=== PATIENT | male | born 1985 ===

== ENCOUNTER 2020-12-06 04:21 | Inpatient (IN) | payer OTHER ==
[2020-12-06] MEDS ORDERED: Ondansetron 4 MG Tab.DIS PO ONE (05:11)
--- NOTE | 2020-12-06 05:17 | EDM.PDOC ---
ED HPI GENERAL MEDICAL PROBLEM - General Chief Complaint: General Stated Complaint: MEDICAL [facility]IA [facility] Time Seen by Provider: 12/06/20 05:00 Source of Information: Reports: Patient, EMS History Limitations: Reports: No Limitations - History of Present Illness INITIAL COMMENTS - FREE TEXT/NARRATIVE: 35-year-old male received his Covid vaccine yesterday afternoon, last night around 10:00 developed some nausea, chills, and then had emesis 6 times through the night. No diarrhea, no shortness of breath. He has some fairly significant abdominal cramps. He became scared and probably hyperventilated because he developed some numbness at the top of his head and started thinking he may have food poisoning. He called the ambulance and they tried to reassure him but he wanted to be seen. He arrived afebrile, anxious, still complaining of some abdominal cramping and nausea Onset: Sudden Duration: Hour(s): (6 hours) Location: Reports: Abdomen Associated Symptoms: Reports: Fever/Chills, Loss of Appetite, Malaise, Nausea/Vomiting. Denies: Confusion, Chest Pain abd pain Pain Score (Numeric/FACES): 9 - Related Data Allergies Allergy/AdvReac Type Severity Reaction Status Date / Time diphenhydramine Allergy Cannot Verified 12/06/20 05:13 [From Benadryl] Remember ibuprofen Allergy Facial Verified 12/06/20 05:13 Swelling phenytoin [From Dilantin] Allergy Itching Verified 12/06/20 05:13 Home Meds: Home Meds Levothyroxine 125 mcg PO ACBREAKFAST 12/06/20 [History] Past Medical History HEENT History: Reports: Impaired Vision, Other (See Below) Other HEENT History: glasses Neurological History: Reports: Seizure, Other (See Below) Other Neuro History: 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 Psychiatric History: Reports: Anxiety Endocrine/Metabolic History: Reports: Hypothyroidism Oncologic (Cancer) History: Reports: Brain, Other (See Below) 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 Dermatologic History: Reports: Other (See Below) Other Dermatologic History: dry skin - Infectious Disease History Infectious Disease History: Reports: Chicken Pox - Past Surgical History HEENT Surgical History: Reports: Other (See Below) Other HEENT Surgeries/Procedures: 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 Denies: Diarrhea : Reports: No Symptoms Musculoskeletal: Reports: Other (Some generalized muscle aches) Skin: Reports: No Symptoms Neurological: Reports: Other (Tingling at the top of his head) ED EXAM, GENERAL - Physical Exam Exam: See Below Exam Limited By: No Limitations General Appearance: Alert, Anxious Respiratory/Chest: No Respiratory Distress, Lungs Clear Cardiovascular: Regular Rate, Rhythm GI/Abdominal: Normal Bowel Sounds, Guarding (Gaurding across lower abdomen), Tender (Patient does react with diffuse discomfort with palpation of the abdomen) Neurological: Alert, Oriented Psychiatric: Anxious Skin Exam: Warm, Dry Course - Vital Signs Last Recorded V/S: Last Vital Signs Temp 97.8 F 12/07/20 08:00 Pulse 78 12/07/20 08:00 Resp 12 12/07/20 08:00 BP 132/83 12/07/20 08:00 Pulse Ox 98 12/07/20 08:00 - Orders/Labs/Meds Labs: Laboratory Tests 12/06/20 12/06/20 12/06/20 Range/Units 07:12 07:13 07:13 WBC 16.3 H (4.5-11.0) K/uL RBC 5.15 (4.30-5.90) M/uL Hgb 14.9 (12.0-15.0) g/dL Hct 44.0 (40.0-54.0) % MCV 85 (80-98) fL MCH 29 (27-31) pg MCHC 34 (32-36) % Plt Count 326 (150-400) K/uL Neut % (Auto) 89 H (36-66) % Lymph % (Auto) 5 L (24-44) % [place] % (Auto) 5 (2-6) % Eos % (Auto) 0 L (2-4) % Baso % (Auto) 0 (0-1) % Sodium 139 L (140-148) mmol/L Potassium 4.0 (3.6-5.2) mmol/L Chloride 100 (100-108) mmol/L Carbon Dioxide 26 (21-32) mmol/L Anion Gap 17.0 H (5.0-14.0) mmol/L BUN 16 (7-18) mg/dL Creatinine 0.9 (0.8-1.3) mg/dL Est Cr Clr Drug Dosing 110.83 mL/min Estimated GFR (MDRD) > 60 (>60) Glucose 132 H (74-106) mg/dL Calcium 9.2 (8.5-10.1) mg/dL SARS CoV-2 RNA Rapid PB Negative Meds: Medications Discontinued Medications Generic Name Dose Route Start Last Admin Trade Name Freq PRN Reason Stop Dose Admin Acetaminophen 1,000 mg 12/06/20 07:30 12/06/20 07:37 Acetaminophen 500 Mg Tab PO 12/06/20 07:31 1,000 mg ONETIME ONE Administration Acetaminophen 1,000 mg 12/06/20 11:00 12/07/20 05:01 Acetaminophen 500 Mg Tab PO 1,000 mg Q6H GHASSAN Administration Amoxicillin/Clavulanate Potassium 1 tab 12/07/20 09:00 12/07/20 08:12 Amoxicillin/Clavulanate K 875-125 Mg Tab PO 12/07/20 09:01 1 tab ONETIME ONE Administration Bupivacaine HCl/Epinephrine Bitart Confirm 12/06/20 07:45 12/06/20 08:47 Bupivacaine 0.5%/Epinephrine 1:200,000 50 Ml Mdv Administered 12/06/20 07:46 20 ml Dose Administration 50 ml .ROUTE .STK-MED ONE Ropivacaine 42 ml/ 0 ml 12/06/20 08:00 12/06/20 08:50 Dexamethasone 8 mg/ NERVRT 80 syringe Epinephrine HCl 0.4 mg/ Sodium ASDIRECTED GHASSAN Administration Chloride 35.6 ml Cyclobenzaprine HCl 10 mg 12/06/20 10:22 Cyclobenzaprine 10 Mg Tab PO Q8H PRN Muscle Spasm Dexamethasone Confirm 12/06/20 07:52 Dexamethasone 4 Mg/Ml Sdv Administered 12/06/20 07:53 Dose 4 mg .ROUTE .STK-MED ONE Docusate Sodium 100 mg 12/06/20 21:00 12/07/20 08:12 Docusate Sodium 100 Mg Cap PO 100 mg BID GHASSAN Administration Fentanyl Confirm 12/06/20 07:53 Fentanyl 250 Mcg/5 Ml Sdv Administered 12/06/20 07:54 Dose 250 mcg .ROUTE .STK-MED ONE Fentanyl Confirm 12/06/20 08:48 Fentanyl 100 Mcg/2 Ml Sdv Administered 12/06/20 08:49 Dose 100 mcg .ROUTE .STK-MED ONE Glycopyrrolate Confirm 12/06/20 07:52 Glycopyrrolate 0.2 Mg/Ml 5 Ml Mdv Administered 12/06/20 07:53 Dose 1 mg .ROUTE .STK-MED ONE Hydromorphone HCl 0.5 mg 12/06/20 11:00 Hydromorphone 0.5 Mg/0.5 Ml Syringe IVPUSH Q2H PRN MODERATE PAIN Hydromorphone HCl 1 mg 12/06/20 11:00 Hydromorphone 1 Mg/Ml Syringe IV Q2H PRN SEVERE PAIN Hydroxyzine HCl 100 mg 12/06/20 11:00 Hydroxyzine Hcl 100 Mg/2 Ml Sdv IM Q4H PRN breakthrough pain Ampicillin Sodium/Sulbactam 100 mls @ 200 mls/hr 12/06/20 07:30 12/06/20 07:37 Sodium 3 gm/ Sodium Chloride IV 12/06/20 07:59 200 mls/hr ONETIME ONE Administration Lactated Ringer's 500 mls @ 500 mls/hr 12/06/20 07:30 12/06/20 07:37 Ringers, Lactated IV 12/06/20 08:29 500 mls/hr ONETIME ONE Administration Dextrose/Lactated Ringer's 1,000 mls @ 80 mls/hr 12/06/20 08:30 12/06/20 21:11 Dextrose 5%-Lactated Ringers IV 80 mls/hr ASDIRECTED GHASSAN Administration Ampicillin Sodium/Sulbactam 100 mls @ 200 mls/hr 12/06/20 14:00 12/07/20 01:26 Sodium 3 gm/ Sodium Chloride IV 200 mls/hr Q6H GHASSAN Administration Neostigmine Methylsulfate Confirm 12/06/20 07:52 Neostigmine Methylsulfate 1 Mg/Ml 5 Ml Syringe Administered 12/06/20 07:53 Dose 5 mg .ROUTE .STK-MED ONE Ondansetron HCl 4 mg 12/06/20 05:11 12/06/20 05:16 Ondansetron 4 Mg Tab.Dis PO 12/06/20 05:12 4 mg ONETIME ONE Administration Ondansetron HCl Confirm 12/06/20 07:52 Ondansetron 4 Mg/2 Ml Sdv Administered 12/06/20 07:53 Dose 4 mg .ROUTE .STK-MED ONE Ondansetron HCl 4 mg 12/06/20 11:00 Ondansetron 4 Mg/2 Ml Sdv IVPUSH Q4H PRN Nausea/Vomiting Oxycodone HCl 5 mg 12/06/20 10:22 12/07/20 07:59 Oxycodone 5 Mg Tab PO 5 mg Q4H PRN Administration PAIN Pantoprazole Sodium 40 mg 12/06/20 11:00 12/06/20 11:18 Pantoprazole 40 Mg Vial IVPUSH 40 mg Q24H GHASSAN Administration Propofol Confirm 12/06/20 07:52 Propofol 200 Mg/20 Ml Sdv Administered 12/06/20 07:53 Dose 200 mg .ROUTE .STK-MED ONE Rocuronium [place] Confirm 12/06/20 07:52 Rocuronium 50 Mg/5 Ml Vial Administered 12/06/20 07:53 Dose 50 mg .ROUTE .STK-MED ONE Succinylcholine Chloride Confirm 12/06/20 07:52 Succinylcholine 200 Mg/10 Ml Mdv Administered 12/06/20 07:53 Dose 200 mg .ROUTE .STK-MED ONE - Re-Assessments/Exams Free Text/Narrative Re-Assessment/Exam: 12/06/20 05:18 Patient was given 1 sublingual Zofran and monitor. 12/06/20 06:41 1 hour after the Zofran, nausea was better but he still had persistent abdominal pain, it seemed to be more localized in the right lower quadrants so CT of the abdomen pelvis was obtained. Results are pending. 12/06/20 07:17 IMPRESSION: Normal CT of the abdomen without contrast. CT of the pelvis shows findings of acute, nonruptured appendicitis. Above CT findings were found, surgical consultation was obtained and a CBC and BMP were ordered. Dr. Shah of the surgical service has accepted the patient for admission. Departure - Departure Time of Disposition: 08:25 Disposition: Admitted As Inpatient 66 Clinical Impression: Acute appendicitis Qualifiers: Acute appendicitis type: with localized peritonitis Appendicitis gangrene presence: without gangrene Appendicitis perforation presence: without perforation Appendicitis abscess presence: without abscess Qualified Code(s): K35.30 - Acute appendicitis with localized peritonitis, without perforation or gangrene - Discharge Information Sepsis Event Note (ED) - Evaluation Sepsis Screening Result: No Definite Risk
--- NOTE | 2020-12-06 07:00 | CRLCT ---
INDICATION: Right lower quadrant pain. COMPARISON: None available TECHNIQUE: CT examination of the abdomen and pelvis was performed without contrast enhancement using 3 mm thick axial sections from the lung bases through the pubic symphysis. Oral contrast was not administered. Please note that all CT scans at this facility use dose modulation, iterative reconstruction, and/or weight-based dosing when appropriate to reduce radiation dose to as low as reasonably achievable. FINDINGS: In the abdomen, the unenhanced liver, spleen, pancreas, and adrenals are normal in appearance. The unenhanced kidneys are normal in appearance. The gallbladder is normal in appearance. The abdominal aorta is normal in caliber with no sign of dilatation. There is no sign of retroperitoneal mass or adenopathy. The stomach, loops of small bowel, and colon in the abdomen are normal in appearance. In the pelvis, the appendix is prominently dilated at 13 millimeters with mild thickening of its bravo. There is minimal periappendiceal inflammatory reaction. There is no sign of any periappendiceal fluid collection, extraluminal gas, or free fluid in the pelvis. The findings are that of acute, non ruptured appendicitis. The loops of small bowel and colon in the pelvis are normal in appearance. The prostate is normal in appearance. The urinary bladder is normal in appearance. There is no sign of pelvic or inguinal mass or adenopathy. There is no sign of free air or free fluid in the abdomen or pelvis. The lung bases are clear. The osseous structures are normal in appearance for the patient`s age. IMPRESSION: Normal CT of the abdomen without contrast. CT of the pelvis shows findings of acute, nonruptured appendicitis. Please note that all CT scans at this facility use dose modulation, iterative reconstruction, and/or weight-based dosing when appropriate to reduce radiation dose to as low as reasonably achievable. Dictated by Neptali Castro MD @ Dec 06 2020 6:54AM Signed by Dr. Neptali Castro @ Dec 06 2020 6:57AM
[2020-12-06] MEDS ORDERED: Lactated Ringers 500 ML IV ONE (07:30)
[2020-12-06] MEDS ORDERED: Acetaminophen 500 MG Tab PO ONE (07:30)
[2020-12-06] MEDS ORDERED: Ampicillin/Sulbactam Na 3 GM in Sodium Chloride 0.9% 100 ML IV ONE (07:30)
[2020-12-06] MEDS ORDERED: Bupivacaine 0.5%/EPINEPHrine 1:200,000 50 ML MDV ONE (07:45)
[2020-12-06] MEDS ORDERED: Dexamethasone 4 MG/ML SDV ONE (07:52)
[2020-12-06] MEDS ORDERED: Rocuronium 50 MG/5 ML Vial ONE (07:52)
[2020-12-06] MEDS ORDERED: Neostigmine Methylsulfate 1 MG/ML 5 ML Syringe ONE (07:52)
[2020-12-06] MEDS ORDERED: Ondansetron 4 MG/2 ML SDV ONE (07:52)
[2020-12-06] MEDS ORDERED: Succinylcholine 200 MG/10 ML MDV ONE (07:52)
[2020-12-06] MEDS ORDERED: Propofol 200 MG/20 ML SDV ONE (07:52)
[2020-12-06] MEDS ORDERED: Glycopyrrolate 0.2 MG/ML 5 ML MDV ONE (07:52)
[2020-12-06] MEDS ORDERED: fentaNYL 250 MCG/5 ML SDV ONE (07:53)
[2020-12-06] MEDS ORDERED: Dextrose 5%-Lactated Ringers 1,000 ML IV SCH (08:30)
[2020-12-06] MEDS ORDERED: fentaNYL 100 MCG/2 ML SDV ONE (08:48)
[2020-12-06] MEDS ORDERED: Cyclobenzaprine 10 MG Tab PO PRN (10:22)
[2020-12-06] MEDS ORDERED: Ondansetron 4 MG/2 ML SDV IVPUSH PRN (11:00)
[2020-12-06] MEDS ORDERED: HYDROmorphone 0.5 MG/0.5 ML Syringe IVPUSH PRN (11:00)
[2020-12-06] MEDS ORDERED: Pantoprazole 40 MG Vial IVPUSH SCH (11:00)
[2020-12-06] MEDS ORDERED: hydrOXYzine HCL 100 MG/2 ML SDV IM PRN (11:00)
[2020-12-06] MEDS ORDERED: HYDROmorphone 1 MG/ML Syringe IV PRN (11:00)
[2020-12-06] MEDS: Acetaminophen 500 MG Tab PO SCH ×3 (11:18→22:01)
[2020-12-06] MEDS: Ampicillin/Sulbactam Na 3 GM in Sodium Chloride 0.9% 100 ML IV SCH ×2 (13:20→19:48)
[2020-12-06] MEDS: oxyCODONE 5 MG Tab PO PRN (15:12)
[2020-12-06] MEDS: Docusate Sodium 100 MG Cap PO SCH (22:01)
[2020-12-07] MEDS: Ampicillin/Sulbactam Na 3 GM in Sodium Chloride 0.9% 100 ML IV SCH (01:26)
[2020-12-07] MEDS: Acetaminophen 500 MG Tab PO SCH (05:01)
[2020-12-07] MEDS: oxyCODONE 5 MG Tab PO PRN (07:59)
[2020-12-07] MEDS: Docusate Sodium 100 MG Cap PO SCH (08:12)
[2020-12-07] MEDS ORDERED: Amoxicillin/Clavulanate K 875-125 MG Tab PO ONE (09:00)
--- NOTE | 2020-12-08 12:35 | OR ---
DATE OF PROCEDURE: 12/06/2020 SURGEON: Mango Shah MD PREOPERATIVE DIAGNOSIS: Acute appendicitis. POSTOPERATIVE DIAGNOSIS: Perforated appendicitis with necrotizing inflammation involving base of cecum with a pericecal abscess. OPERATIVE PROCEDURE: Diagnostic laparoscopy with: 1. Partial cecectomy (47505). 2. Drainage of pericecal abscess (03669). ANESTHESIA: General. INDICATIONS FOR PROCEDURE: This is a 35-year-old male presenting to the emergency room with abdominal pain. Initially, it was thought this might be related to his first Moderna COVID shot, which he received the day previously, but as of the nurse liaison on 12/08/2020, he continued to have worsening lower abdominal pain, particularly in the right lower quadrant. A CT scan was obtained, which was consistent with acute appendicitis. Plan was to proceed with diagnostic laparoscopy, laparotomy if necessary, and appendectomy with other procedures as indicated based on operative findings. Potential risks including bleeding, infection, leaks from GI tract closures as well as possibility of cardiopulmonary, septic, or hemorrhagic complications leading to were discussed, and the patient wishes to proceed. DETAILS OF PROCEDURE: The patient was taken to the operating room. After general endotracheal anesthesia was induced, a Braden catheter was inserted and the abdomen prepped and draped. Three fingerbreadths superior and to the left of the umbilicus, a transverse incision was made and peritoneal cavity entered under direct vision with an Optiview trocar, inflated to 15 mmHg pressure with CO2. Laparoscope was then reinserted. No underlying trocar insertion site injuries were seen. Following this, a 12 mm trocar was placed in the left lower quadrant and right upper quadrant. The lower abdomen was examined. As one retracted the omentum, there was a prominent purulent fluid collection adjacent to the cecum and up along the pericolic gutter to roughly longterm up in the pericolic gutter along the cecum and ascending colon. This fluid was evacuated and cultures were obtained and showed mixed marciano consistent with perforated distal GI tract. As one mobilized the mesoappendix with division with Harmonic scalpel, it became evident there was necrotizing infection which extended down to the cecal base and we elected at this point to proceed with partial cecectomy to allow a more adequate staple line and to be remaining in situ postoperatively. This was done with 2 firings of KHURRAM purple load and the specimen consisting of the appendix and distal cecum was then delivered through the left lateral trocar site, pulling it through the trocar to avoid contamination of the abdominal wall during this passage. At this point, the area was inspected and all the purulence appeared to be well controlled and the staple line appeared to be satisfactory. Some minor bleeding from the mesoappendix staple line was controlled with electrocautery. At that point, no further problems were noted. The trocars were removed and the peritoneal cavity deflated. Incisions were closed with some 4- 0 Vicryl skin stitch after the fascia had been closed at each of the sites with 0 Vicryl stitch and the patient had received bilateral transversus abdominis plane blocks and was anesthetized with 1% lidocaine mixed with Marcaine as well and the patient was taken to the recovery room in satisfactory condition. There were no other complications. Mango Shah MD /[id number]
--- NOTE | 2020-12-08 13:18 | DISCH ---
FINAL DIAGNOSIS: Perforated appendicitis with necrotizing inflammation involving base of cecum and pericecal abscess. OPERATIVE PROCEDURE: On 12/06/2020, diagnostic laparoscopy with: 1. Partial cecectomy. 2. Drainage of pericecal abscess. SUMMARY: This is a 35-year-old male presenting after having a Moderna shot for the first time on Tuesday with some abdominal pain. Initially, it was thought this was related to the injection other symptoms seemed to be subsiding. A CT scan was obtained because of persistent increasing pain in the right lower quadrant, which confirmed appendicitis. The patient was prepared for surgery and then underwent a diagnostic laparoscopy. His appendicitis extended up with necrosis involving the base of the cecum requiring partial cecectomy and perforation at that junction with pericecal abscess as well. This was then drained and partial cecectomy completed. clean enough at the conclusion of the procedure that we felt draining was not necessary. Clinically, he is eating well now and requiring only Tylenol for pain, to be sent home with Tylenol as needed for pain and Augmentin 875 b.i.d. x5 days. Cultures showed mixed marciano with gram-negative rods, gram- positive cocci and gram-positive rods, all of which would likely be adequately covered by the Augmentin. He will be following up with Dr. Shah at [facility] on 12/17/2020 and will be restricted on lifting for 1 week. Otherwise, no specific restrictions. /[id number]
== END 2020-12-07 10:33 | disposition home or self-care (01) | DRG 338 ==
LOC: JP.ED 04:21 → JP.SDS 08:05 → JP.ICU 10:00
PROVIDERS: ADMIT Surgery; ATTEND Surgery
PROC: 0DTJ4ZZ Resection of Appendix, Percutaneous Endoscopic Approach (ICD-10-PCS; principal; 2020-12-06)
PROC: 0D9H4ZZ Drainage of Cecum, Percutaneous Endoscopic Approach (ICD-10-PCS; 2020-12-06)
DX: K35.33 Acute appendicitis with perforation, localized peritonitis, and gangrene, with abscess (principal); K55.049 Acute infarction of large intestine, extent unspecified; H54.7 Unspecified visual loss; F41.9 Anxiety disorder, unspecified; E03.9 Hypothyroidism, unspecified; Z85.841 Personal history of malignant neoplasm of brain; Z88.6 Allergy status to analgesic agent; Z88.8 Allergy status to other drugs, medicaments and biological substances; Z20.822 Contact with and (suspected) exposure to COVID-19
CPT/HCPCS: 36415; 74176; 80048; 85025; 87070; 87075; 87077; 87186; 87205; 94762; 96365; 99285-25; A9270-GY; C9113; J0171; J0295; J0330; J1100; J2405; J2704; J2710; J2795; J3010; J3490; J7121; U0002